=== PATIENT | male | born 1955 | race Caucasian/White ===

== ENCOUNTER → 2020-05-20 17:08 | Outpatient (BNVA) | payer OTHER, MEDICARE, SELFPAY | PROVIDERS: Visit Provider Nurse Practitioner Family | DX: S99.911A Unspecified injury of right ankle, initial encounter (principal); X58.XXXA Exposure to other specified factors, initial encounter; M79.604 Pain in right leg | CPT/HCPCS: 73590; 73610 ==

== ENCOUNTER 2020-05-25 12:23 | Outpatient (CLI) | payer OTHER, SELFPAY ==
--- NOTE | 2020-05-25 14:15 | USCV_ITS ---
Sean Lema Age: 65 Gender: M : 1955 Exam Date: 05/25/2020 12:40 Ordering Phys: Yonathan Ernandez MD Technologist: Aniket Haynes Exam Location: [facility] – [place] Ind[place]: LEG TRAUMA HISTORY: Leg truama PROCEDURES: Venous duplex imaging was performed in only the right lower extremity. The following venous structures were evaluated: common femoral vein, profunda vein, proximal portion of the greater saphenous vein, superficial femoral vein, and the popliteal vein. In addition, the posterior tibial and peroneal trunk were evaluated. Serial compression, augmentation maneuvers, and spectral Doppler flow evaluation were performed. FINDINGS: Normal 2-D Doppler and augmentation and compressibility throughout the lower extremity venous structures. Additional imaging through the proximal calf veins also reveals no thrombus. Limited evaluation of the greater saphenous vein is patent with no thrombus. Right hematoma seen at ankle CONCLUSIONS No evidence of right lower extremity DVT. 2.3 x 4.1 x 1.1cm hematoma at ankle Kiel Campos MD (Electronically Signed) Final Date: 25 May 2020 17:43 S
== END 2020-05-25 12:24 | disposition home or self-care (01) ==
LOC: RAD 12:25
PROVIDERS: PCP Nurse Practitioner Family; Visit Provider Family Medicine
DX: S89.91XA Unspecified injury of right lower leg, initial encounter (principal); S90.01XA Contusion of right ankle, initial encounter; X58.XXXA Exposure to other specified factors, initial encounter
CPT/HCPCS: 93971

== ENCOUNTER → 2021-04-07 11:15 | Outpatient (BNVA) | payer MEDICARE, SELFPAY | PROVIDERS: PCP Nurse Practitioner Family; Visit Provider Nurse Practitioner Family | DX: Z20.822 Contact with and (suspected) exposure to COVID-19 (principal); J06.9 Acute upper respiratory infection, unspecified | CPT/HCPCS: 87426 ==